=== PATIENT | male | born 1995 | race Caucasian/White ===

== ENCOUNTER 2017-02-21 19:58 | Emergency (ER) | payer OTHER ==
--- NOTE | ~2017-02-21 | CT2 ---
[facility] A Service of [facility] RADIOLOGY TEXT RESULTS PATIENT: TAWANA SAUL JR LOCATION: SED : 95 UNIT #: [id number] AGE: [address]: Mundo Kerns MD SEX: M ORDER DR: [id number] [address] [address] [id number] MR#: [id number] #: [id number] NAME: TAWANA SAUL JR : 1995 SEX: M STUDY DATE/TIME: 02/21/2017 22:03 UNIT: SED ROOM: STUDY DESCRIPTION: CT Abd and Pelv W Cont Attending Physician: Mundo Kerns M.D. Ordering Physician: Mundo Kerns M.D. Primary Care Physician: Primary Care Physician No MEDICAL IMAGING REPORT This report is preliminary unless electronic signature is present. EXAM CT abdomen and pelvis with contrast, 02/21/2017 INDICATION Mid abdomen pain, nausea and vomiting for a week with elevated white blood cell count. COMPARISON 08/07/2014 TECHNIQUE The patient was given 100 mL Isovue-370 and axial 5 mm images were obtained through the abdomen and pelvis. This CT exam was performed with one or more of the following radiation dose reduction techniques: automatic exposure control, adjustment of mA and/or kV according to patient size, and iterative reconstruction. FINDINGS The lung bases are clear. The gallbladder is surrounded by fluid and slightly contrasted and the wall is enhancing. No stones are visible. The liver, spleen, pancreas, adrenal glands and kidneys are normal. The aorta is normal in size and there is no adenopathy. The bowel appears normal. There is no evidence of appendicitis. I cannot clearly seen the appendix. There is a small amount of free fluid in the pelvis. The bladder and prostate gland are normal. The bones are unremarkable. IMPRESSION 1. The gallbladder is abnormal. The gallbladder is slightly contracted and the wall is enhancing but the wall is normal in thickness. The gallbladder is surrounded by fluid. There is also some free fluid in the pelvis. Clinical correlation with evidence of cholecystitis is [facility] A Service of [facility] RADIOLOGY TEXT RESULTS PATIENT: TAWANA SAUL JR LOCATION: SED : 95 UNIT #: [id number] AGE: [address]: Mundo Kerns MD SEX: M ORDER DR: recommended. 2. I cannot see the appendix but I do not see any evidence of appendicitis. Dictated by... Mc Hoang M.D. THIS IS AN ELECTRONICALLY VERIFIED REPORT cM Hoang M.D. at 02/22/2017 5:54 AM BRANDI/sameera TD: 02/22/2017 02:00 JOB #: [id number] MEDICAL IMAGING REPORT Page 1 of 1
[~2017-02-21 19:58] MED LIST: AMOXIL875 MG PO; DOXYCYCLINE150 MG PO; MOTRIN400 M1 PO; NO MEDICATIONS; PYRIDIUM100 MG PO; VOLTAREN75 MG PO
[2017-02-21 20:12] LABS: URINE SOURCE CLEAN CATCH
[2017-02-21 20:17] LABS: URINE APPEARANCE CLEAR; URINE BLOOD NEG (NEG); URINE COLOR DK YELLOW; URINE GLUCOSE NEG (NORM); URINE KETONE TRACE (NEG); URINE LEUKOCYTE ESTERASE NEG (NEG); URINE NITRATE NEG (NEG); URINE PH 5.5 (5-8); URINE PROTEIN 1+ (NEG); URINE SPECIFIC GRAVITY 1.025 (1.003-1.035)
[2017-02-21 20:18] LABS: URINE BILIRUBIN POS (NEG)
[2017-02-21 20:19] LABS: BASOPHIL# 0.2 X10e3 (0-0.3); BASOPHIL% 1.2 % (0-2.5); EOSINOPHIL# 0.3 X10e3 (0-0.7); HEMATOCRIT 45.1 % (38.0-50.0); HEMOGLOBIN 15.2 gm/dL (13.0-16.0); LYMPHOCYTE# 3.8 X10e3 (1.0-3.5); LYMPHOCYTE% 29.8 % (17.0-45.0); MEAN CELL VOLUME 90.9 FL (83-96); MEAN CORPUSCULAR HEMOGLOBIN 30.7 PG (28-34); MEAN CORPUSCULAR HGB CONC 33.7 g/dL (30-36); MEAN PLATELET VOLUME 8.2 FL (6.5-11.5); MICRO INDICATED? NO; MONOCYTE# 1.8 X10e3 (0-1.0); MONOCYTE% 13.6 % (3.0-12.0); NEUTROPHIL# 6.9 X10e3 (1.5-7.1); NEUTROPHIL% 53.4 % (40-75); PLATELET COUNT 213 X10e3 (140-420); RED BLOOD COUNT 4.97 X10e (3.90-5.60); RED CELL DISTRIBUTION WIDTH 14.8 % (11.0-15.5); WHITE BLOOD COUNT 12.9 X10e3 (4.0-10.5)
[2017-02-21 20:20] LABS: DIFF IND NO
[2017-02-21 20:27] LABS: AMPHETAMINE POS (NEG); BARBITURATES NEG (NEG); BENZODIAZEPINES POS (NEG); COCAINE NEG (NEG); MARIJUANA POS (NEG); OPIATES POS (NEG); TRICYCLIC ANTIDEPRESSANTS NEG (NEG); U METHADONE NEG (NEG)
[2017-02-21 20:35] LABS: ALBUMIN SERUM 3.5 g/dL (3.5-5.0); BILIRUBIN, DIRECT 3.3 mg/dL (0.0-0.2); BILIRUBIN,INDIRECT 1.6 mg/dL (0.0-0.9); BILIRUBIN,TOTAL 4.9 mg/dL (0.2-2.0); BUN/CREATININE RATIO 11.42; CALCIUM SERUM 8.7 mg/dL (8.4-10.2); CREATININE SERUM 0.7 mg/dL (0.6-1.4); POTASSIUM 3.6 mmol/L (3.5-5.1); PROTEIN TOTAL SERUM 6.9 g/dL (6.0-8.3)
[2017-02-21 21:15] LABS: INR 1.3; PROTHROMBIN TIME (PATIENT) 15.2 SECONDS (9.5-12.4)
[2017-02-22] MEDS ORDERED: NO MEDICATIONS (16:13)
[2017-07-28] MEDS ORDERED: OXYCONTIN PO (10:45)
[2017-07-28] MEDS ORDERED: NEURONTIN PO (10:46)
[2017-07-28] MEDS ORDERED: ROBAXIN PO (10:46)
[2017-07-28] MEDS ORDERED: VISTARIL50 MG PO (10:47)
[2017-07-28] MEDS ORDERED: REQUIP1 MG PO (10:47)
[2017-07-28] MEDS ORDERED: SEROQUEL100 MG PO (10:48)
[2017-07-28] MEDS ORDERED: DAPTOMYCIN500 MG IV (10:49)
[2017-07-28] MEDS ORDERED: TYL325 PO (10:51)
[2017-07-28] MEDS ORDERED: DAKIN'S MODIF1000 ML TOP (10:53)
== END 2017-02-21 22:36 | disposition left against medical advice (07) ==
LOC: SED 19:58
PROVIDERS: Emergency Medicine
DX: B17.9 Acute viral hepatitis, unspecified (principal); F19.10 Other psychoactive substance abuse, uncomplicated; F17.200 Nicotine dependence, unspecified, uncomplicated
CPT/HCPCS: 36415; 74177; 80048; 80076; 80307; 81003; 82150; 83690; 85025; 85610; 85730; 96361; 96365; 96374; 96375; 99284; G0480; J2405; Q9967

== ENCOUNTER 2017-02-22 13:07 | Inpatient (IN) | payer OTHER ==
--- NOTE | ~2017-02-22 | CO ---
Unit #: [id number] #: [id number] Patient: TAWANA SAUL JR [id number] [address] [place], [place] [address] [id number] I MR#: [id number] NAME: TAWANA SAUL JR ROOM: [facility] Age: 22 Sex: M Admission Date: 02/22/2017 : 1995 Attending Physician: Paul Melo M.D. Consultation Date: 02/23/2017 CONSULTATION REPORT REASON FOR CONSULTATION Acute hepatitis. HISTORY OF PRESENT ILLNESS Mr. Saul is a 22-year-old gentleman with a history of nausea, diffuse abdominal pain, and jaundice. This is his first episode that he has ever noted anything like this. His initial workup suggested possibility of cholecystitis, but further evaluation shows the entire thing to be acute hepatitis. There is also mention of the patient having hepatitis C in the past. He does use intravenous amphetamine and says he last used it about a month ago. PAST MEDICAL HISTORY Significant for hepatitis C. PAST SURGICAL HISTORY None. HOME MEDICATIONS None. ALLERGIES None. SOCIAL HISTORY He smokes a pack of cigarette daily. Does not drink, but does use intravenous drugs. FAMILY HISTORY None of colon, pancreatic cancer, or liver disease. REVIEW OF SYSTEMS Detailed review of organ systems does not reveal any recent weight loss. No history of fever, chills, or rigors. No history of headache, seizures, chest pain, or syncope. No history of cough, expectoration, or hemoptysis. No history of dysuria, hematuria, or pyuria. No history of focal seizures or extremity weakness. PHYSICAL EXAMINATION GENERAL: He appears alert and oriented, and does appear to have jaundice. VITAL SIGNS: Temperature is 98.2, pulse is 60 per minute and regular, respiratory rate is 20, blood pressure is 139/66. He weighs 143 pounds, which is close to his baseline weight. HEENT: He has no pallor, but does have obvious icterus. No Unit #: [id number] #: [id number] Patient: TAWANA SAUL JR lymphadenopathy or peripheral edema. CARDIOVASCULAR: Normal heart sounds. No murmurs on auscultation. LUNGS: Reveal normal breath sounds. Good air entry. ABDOMEN: Soft and nontender. Liver and spleen are not palpable. Bowel sounds normal. DIAGNOSTIC STUDIES LABORATORY RESULTS: Shows a leukocytosis with white count of 12,900, hemoglobin and hematocrit are normal. INR is 1.2. Serum chemistry shows a total bilirubin of 5.7 with a rising trend. Peak AST and ALT and alkaline phosphatase are 1693, 2800, as well as 183 respectively. Hepatitis serology is pending. CLINICAL IMPRESSION The patient most likely has either hepatitis B or hepatitis C as a result of intravenous drug use. A detailed discussion was held with the patient and explained that there is chances are that he will fully recover from the current episode, but will require follow up with [facility] as an outpatient. No specific intervention is indicated except for normal regular diet. Thank you for asking me to see this pleasant young man. I appreciate the consult. Dictated by... Sulma Loya/huber TD: 02/24/2017 23:19 JOB #: [id number] CONSULTATION REPORT Page 1 of 1 X David Gould MD X CONSULTATION REPORT
--- NOTE | ~2017-02-22 | US67 ---
[facility] A Service of [facility] RADIOLOGY TEXT RESULTS PATIENT: TAWANA SAUL JR LOCATION: [facility] 560-01 : 95 UNIT #: [id number] AGE: [address]: Paul Melo MD SEX: M ORDER DR: [id number] [facility] [address] [place], [place] [address] [id number] I MR#: [id number] #: [id number] NAME: TAWANA SAUL JR : 1995 SEX: M STUDY DATE/TIME: 02/22/2017 15:41 UNIT: CEDOF ROOM: 91957 STUDY DESCRIPTION: US Gallbladder Attending Physician: Ken Rowan M.D. Ordering Physician: Partha Almanza D.O. Primary Care Physician: No Primary Care Physician MEDICAL IMAGING REPORT This report is preliminary unless electronic signature is present EXAM Gallbladder ultrasound, 02/22/2017 HISTORY 22-year-old male; right upper quadrant abdominal pain and nausea for [address] abdomen and pelvis with contrast, 02/21/2017. FINDINGS The liver demonstrates normal echotexture without focal abnormality. Pancreatic tail is partially obscured by bowel gas, but the visualized pancreas appears unremarkable. The IVC demonstrates normal color flow. Common bile duct caliber is within normal limits, at 3 mm. No intrahepatic biliary ductal dilation is seen. The liver size is within normal limits measuring 16.6 cm in long axis. Right kidney measures 10.5 cm in length without focal cortical lesion, shadowing stone or hydronephrosis. Gallbladder is contracted. The gallbladder is abnormal. There is abnormal gallbladder wall thickening and gallbladder wall edema up to 11 mm. No definite cholelithiasis is seen. IMPRESSION 1. Abnormal diffuse gallbladder wall thickening and gallbladder wall edema, worrisome for acute or chronic cholecystitis. Correlate with clinical symptoms. 2. No evidence of cholelithiasis or abnormal biliary dilation. 3. Remainder of examination is unremarkable. [facility] A Service of [facility] RADIOLOGY TEXT RESULTS PATIENT: TAWANA SAUL JR LOCATION: [facility] 560-01 : 95 UNIT #: [id number] AGE: [address]: Paul Melo MD SEX: M ORDER DR: Dictated by... Marixa Burrell M.D. THIS IS AN ELECTRONICALLY VERIFIED REPORT Marixa Burrell M.D. at 02/23/2017 8:34 AM JOANNA/cristino TD: 02/22/2017 20:04 JOB #: [id number] MEDICAL IMAGING REPORT Page 1 of 1 COPY
--- NOTE | ~2017-02-22 | DS ---
Unit #: [id number] #: [id number] Patient: TAWANA SAUL JR [id number] [address] [place], [place] [address] [id number] I MR#: [id number] NAME: TAWANA SAUL JR ROOM: 560 Age: 22 Sex: M Admission Date: 02/22/2017 : 1995 Discharge Date: 02/25/2017 Attending Physician: Paul Melo M.D. Primary Care Physician: No Primary Care Physician DISCHARGE SUMMARY DIAGNOSIS ON ADMISSION Acute abdominal pain. DIAGNOSES ON DISCHARGE 1. Abdominal pain, improved, no evidence of acute cholecystitis. 2. Chronic hepatitis C. 3. Polysubstance abuse. CONSULTATIONS 1. Dr. David Gould in GI consultation. 2. Dr. Barrett and group in surgical consultation. DIAGNOSTIC STUDIES LABORATORY: The patient's creatinine is 0.7, sodium 135, potassium 4.4. AST 260, ALT 1064. INR is 1.2. WBC 9.1, hemoglobin 13.6, platelet count is 256,000. Patient's urine tox screen was positive for opiates, marijuana, amphetamines, and benzodiazepines. IMAGING: Patient had HIDA scan done which suggested significant metabolic abnormality within the liver. There was no compelling evidence of acute cholecystitis or cystic duct obstruction. Patient had a gallbladder ultrasound done which revealed abnormal diffuse gallbladder wall thickening and gallbladder wall edema. CT scan of abdomen and pelvis revealed that the gallbladder was slightly contracted but the wall thickness was normal. HOSPITAL COURSE A 22-year-old patient was admitted to [facility] with abdominal pain. Details are as per admission H and P. Patient was seen by GI in consultation and Dr. Barrett in surgical consultation. Workup was done and Dr. Barrett has recommended that patient does not have any evidence of acute cholecystitis. Acute hepatitis: Patient has history of chronic hepatitis C. Patient was seen by Dr. David Gould in consultation who has recommended to follow up with [facility]. Polysubstance abuse: Patient was advised to follow up with [facility]. Today patient is comfortable. Denies abdominal pain, is tolerating diet well, wants to go home. Unit #: [id number] #: [id number] Patient: TAWANA SAUL JR PHYSICAL EXAMINATION VITAL SIGNS: Reveal temperature of 98.6, pulse is 51 per minute, respiratory rate is 18 per minute, blood pressure is 121/78. HEENT: Revealed no conjunctival congestion. Sclerae is nonicteric. NECK: Supple. Trachea central. RESPIRATORY: Showed breath sounds equal bilaterally. No wheezes or crackles. HEART: Regular rate and rhythm. S1, S2. ABDOMEN: Soft, nontender. Bowel sounds are present in all four quadrants. NEUROLOGIC: The patient is alert to person, place, and time. Power is 5/5 bilaterally. Sensations are grossly intact. SKIN: Warm and dry. FOLLOWUP The patient is advised to follow up with primary care physician in one week and is advised to follow up with [facility]. Patient is also advised to follow up with [facility] (1) . Patient is advised to have a CBC and CMP done with primary care physician in one week. The patient is advised to call primary care physician or go to ER if his condition changes. Dictated by... Sulma Soria/josiah TD: 02/25/2017 11:47 JOB #: [id number] CC: David Gould M.D. DISCHARGE SUMMARY Page 1 of 1 X Paul Melo MD X DISCHARGE SUMMARY
--- NOTE | ~2017-02-22 | NM21 ---
[facility] A Service of [facility] RADIOLOGY TEXT RESULTS PATIENT: TAWANA SAUL JR LOCATION: [facility] 560-01 : 95 UNIT #: [id number] AGE: [address]: Paul Melo MD SEX: M ORDER DR: [id number] [facility] [address]. [place], [place] [address] [id number] I MR#: [id number] Acc #: [id number] NAME: TAWANA SAUL JR : 1995 SEX: M STUDY DATE/TIME: 02/23/2017 12:43 UNIT: C5B ROOM: [facility] STUDY DESCRIPTION: NM Hepatobiliary W GB Attending Physician: Paul Melo M.D. Ordering Physician: Mundo Marin M.D. Primary Care Physician: No Primary Care Physician MEDICAL IMAGING REPORT This report is preliminary unless electronic signature is present EXAM Radionuclide biliary scan. DATE OF EXAM 02/23/2017 HISTORY Sharp epigastric pain, some chest pain, nausea, bloating, constipation. Symptoms for over a week. No abdominal surgery. No history of cancer. TECHNIQUE Following intravenous administration of 5.36 mCi technetium 99m Choletec, static images of the abdomen were obtained at 15-minute intervals over 60 minutes. Delayed 90 and 120-minute images were also obtained. FINDINGS The study is abnormal. There is a subtle area of relative photopenia along the inferior margin of the liver on images to 60 minutes post tracer administration. On the 90 and 120-minute images, there is faint radiotracer seen within this area of relative photopenia. I favor that this is the gallbladder. Given tracer passage into the gallbladder, there is no evidence of cystic duct obstruction or acute cholecystitis. However, there is homogeneous virtually unaltered radiotracer distribution throughout the liver for the entire 120 minutes of the examination. Findings suggest a significant metabolic abnormality within the liver. Please correlate clinically. By the 120 minutes image, there is some very ill-defined and faint radiotracer superimposed over the abdomen which is favored to represent passage into the small bowel. IMPRESSION 1. Abnormal examination. Homogeneous, virtually unaltered distribution of radiotracer throughout the hepatic parenchyma during the entire examination, up to 120 minutes post-administration. This would STS. [facility] A Service of [facility] RADIOLOGY TEXT RESULTS PATIENT: TAWANA SAUL JR LOCATION: [facility] 560-01 : 95 UNIT #: [id number] AGE: [address]: Paul Melo MD SEX: M ORDER DR: suggest significant metabolic abnormality within the liver with significantly diminished radiotracer excretion. Correlate clinically and with laboratory data. 2. Faint visualization of the gallbladder at 90 and 120 minutes post radiotracer administration. See discussion above. Given the visualization of the gallbladder, there is no compelling evidence of acute cholecystitis or cystic duct obstruction. 3. Ill-defined radiotracer seen over the abdomen at 120 minutes post administration is favored to be within the small bowel and would imply patency of the common bile duct as well. Dictated by... Mundo Brown M.D. THIS IS AN ELECTRONICALLY VERIFIED REPORT Mundo Brown M.D. at 02/28/2017 6:37 PM Jose Alejandro TD: 02/23/2017 16:50 JOB #: [id number] MEDICAL IMAGING REPORT Page 1 of 1 COPY
--- NOTE | ~2017-02-22 | CO ---
Unit #: [id number] #: [id number] Patient: TAWANA SAUL JR [id number] [address] [address] [id number] I MR#: [id number] NAME: TAWANA SAUL ROOM: 560 Age: 22 Sex: M Admission Date: 02/22/2017 : 1995 Attending Physician: Paul Melo M.D. Primary Care Physician: Primary Care Physician No Consultation Date: 02/23/2017 CONSULTATION REPORT BRIEF HISTORY The patient is a 22-year-old gentleman, who presents with 1-week history of diffuse abdominal pain, some nausea. No vomiting. No diarrhea. No fevers or chills. No similar history of pain. No trauma. PAST MEDICAL HISTORY None. MEDICATIONS None. PAST SURGICAL HISTORY None. SOCIAL HISTORY Denies alcohol. FAMILY HISTORY Negative for GI malignancy. REVIEW OF SYSTEMS No cardiopulmonary complaints at this time. Else, 10 systems reviewed and negative. PHYSICAL EXAMINATION GENERAL: He is awake, alert, and appropriate, currently afebrile. HEENT: Unremarkable. NECK: Supple. No JVD. Trachea midline. LUNGS: Clear to auscultation. Bilateral breath sounds symmetric. CARDIOVASCULAR: Regular rate and rhythm. ABDOMEN: Soft. Diffusely tender. No rebound. No masses. No point tenderness. EXTREMITIES: No clubbing, cyanosis, or edema. DIAGNOSTIC STUDIES LABORATORY RESULTS: Show white count 11.9, hemoglobin 15. Bilirubin 5.7. AST 1700, ALT 2800. Amylase is normal. Alkaline phosphatase is 183. IMAGING STUDIES: Ultrasound shows thickened gallbladder. No stones. Normal ducts. ASSESSMENT AND PLAN Likely hepatitis. I never seen cholecystitis cause such elevation of LFTs. We will recommend HIDA scan. GI evaluation for possible endoscopic Unit #: [id number] #: [id number] Patient: TAWANA SAUL JR retrograde cholangiopancreatography. Dictated by... Sulma Cisse/huebr TD: 02/23/2017 06:50 JOB #: [id number] CONSULTATION REPORT Page 1 of 1 X Mundo Marin MD CONSULTATION REPORT
--- NOTE | ~2017-02-22 | HP ---
Unit #: [id number] #: [id number] Patient: TAWANA SAUL JR [id number] [address] [place], [place] [address] [id number] I MR#: [id number] NAME: TAWANA SAUL JR ROOM: 75261 Age: 22 Sex: M Admission Date: 02/22/2017 : 1995 Attending Physician: Ken Rowan M.D. Primary Care Physician: No Primary Care Physician HISTORY AND PHYSICAL CHIEF COMPLAINT Abdominal pain. HISTORY OF PRESENT ILLNESS The patient is a 22-year-old male with a history of IV drug abuse, presented to the emergency room complaining of the abdominal pain. The patient was last seen at the [facility] last night and presented complaining of the abdominal pain for the one week. The patient had the workup with the CT of the abdomen and pelvis that is concerning for cholecystitis with free fluid in the pelvis and the gallbladder is slightly contracted and the wall is enhancing but the wall is normal in thickness. The gallbladder is surrounded by fluid. There is also some free fluid in the pelvis. The patient also has elevated LFTs with the history of hepatitis C and the patient stated the patient last used the IV amphetamines a month ago. He denies any fevers or chills, complains of the nausea and vomiting. PAST MEDICAL HISTORY Positive for hepatitis C. PAST SURGICAL HISTORY None. HOME MEDICATIONS None. ALLERGIES No known drug allergies. SOCIAL HISTORY He smokes cigarettes, a pack per day and denies alcohol and uses the IV drug amphetamines. FAMILY HISTORY Reviewed and none. REVIEW OF SYMPTOMS Fourteen-point review of symptoms performed and only pertinent positive findings as described above, remaining are negative. PHYSICAL EXAMINATION GENERAL APPEARANCE: On examination the patient is lying on a bed not in acute distress. Unit #: [id number] #: [id number] Patient: TAWANA SAUL JR VITAL SIGNS: Temperature 97.7, pulse 73, respiratory rate 16, blood pressure 136/58, sating 100% at room air. HEENT: Head atraumatic, normocephalic. Pupils equal, round and reacting to light and accommodation. Extraocular movements are intact. NECK: Supple. No JVD. LUNGS: Clear to auscultation bilaterally. HEART: Regular rate and rhythm. ABDOMEN: Soft, positive bowel sounds. Tenderness in the epigastric region. EXTREMITIES: No cyanosis. No clubbing. NEUROLOGIC: Awake, alert and oriented. No gross focal deficit. DIAGNOSTIC STUDIES IMAGING: CT of the abdomen and pelvis shows the gallbladder is abnormal. The gallbladder is slightly contracted and the wall is enhancing but the wall is normal in thickness. The gallbladder is surrounded by fluid. There is also some free fluid in the pelvis. Clinical correlation with evidence of cholecystitis is recommended. I cannot see the appendix but I do not see any evidence of appendicitis. LABORATORY DATA: Glucose 104, BUN 8, creatinine 0.8, sodium 138, potassium 3.9, chloride 100, bicarb 31, calcium 8.8, albumin 3.1, total bilirubin 5.7, direct bilirubin 3.6, indirect bilirubin 2.1m AST 1693, ALT 2802, alkaline phosphatase 183, amylase 12, lipase 22, acetaminophen less than 10, alcohol less than 5, INR is 1.3, WBC 11.9, hemoglobin 15.2, hematocrit 46.9, platelets 250. Urine tox is positive for benzodiazepine, amphetamines, marijuana, opiates. UA is negative. ASSESSMENT 1. Cholecystitis. 2. Intravenous drug abuse. 3. Hepatitis, history of hepatitis C. PLAN 1. Plan is to admit the patient to the inpatient with the telemetry. 2. Continue with the IV fluids, IV antibiotic with Zosyn. 3. LSA has been consulted for laparoscopic cholecystectomy and recommended GI for ERCP/endoscopy. 4. Continue with the pain control. 5. Check the HIDA scan for the cholecystitis. 6. Repeat the labs again in the morning. Further recommendations will follow. Dictated by Sulma Motta TD: 02/22/2017 20:31 JOB #: [id number] Unit #: [id number] #: [id number] Patient: KGJAZMINE MAIERTITOMARINA Zhao JR HISTORY AND PHYSICAL Page 1 of 1 X X HISTORY AND PHYSICAL
[2017-02-22 13:35] LABS: URINE SOURCE CLEAN CATCH
[2017-02-22 13:40] LABS: INR 1.3; PARTIAL THROMBOPLASTIN TIME 30.1 SECONDS (23.5-31.3)
[2017-02-22 13:41] LABS: URINE APPEARANCE CLEAR; URINE BLOOD NEG (NEG); URINE COLOR DK YELLOW; URINE GLUCOSE NEG (NEG); URINE KETONE NEG (NEG); URINE LEUKOCYTE ESTERASE NEG (NEG); URINE NITRATE NEG (NEG); URINE PH 6.5 (5-8); URINE PROTEIN NEG (NEG); URINE SPECIFIC GRAVITY 1.021 (1.003-1.035); URINE UROBILINOGEN 0.2 MG/DL (NEG)
[2017-02-22 13:47] LABS: BASOPHIL# 0.1 X10e3 (0-0.3); BASOPHIL% 1.1 % (0-2.5); EOSINOPHIL# 0.2 X10e3 (0-0.7); EOSINOPHIL% 1.9 % (0.0-7.0); HEMATOCRIT 46.9 % (38.0-50.0); HEMOGLOBIN 15.2 gm/dL (13.0-16.0); LYMPHOCYTE# 3.2 X10e3 (1.0-3.5); LYMPHOCYTE% 27.1 % (17.0-45.0); MEAN CORPUSCULAR HEMOGLOBIN 29.8 PG (28-34); MEAN CORPUSCULAR HGB CONC 32.4 g/dL (30-36); MEAN PLATELET VOLUME 8.6 FL (6.5-11.5); MONOCYTE# 1.5 X10e3 (0-1.0); MONOCYTE% 12.5 % (3.0-12.0); NEUTROPHIL# 6.8 X10e3 (1.5-7.1); NEUTROPHIL% 57.4 % (40-75); PLATELET COUNT 250 X10e3 (140-420); WHITE BLOOD COUNT 11.9 X10e3 (4.0-10.5)
[2017-02-22 13:53] LABS: URINE BILIRUBIN POS (NEG)
[2017-02-22 13:54] LABS: CULTURE INDICATED? NO; URINE ICTOTEST POS (NEG)
[2017-02-22 14:03] LABS: ALBUMIN SERUM 3.1 g/dL (3.5-5.0); BILIRUBIN, DIRECT 3.6 mg/dL (0.0-0.2); BILIRUBIN,INDIRECT 2.1 mg/dL (0.0-0.9); BILIRUBIN,TOTAL 5.7 mg/dL (0.2-2.0); CALCIUM SERUM 8.8 mg/dL (8.4-10.2); CREATININE SERUM 0.8 mg/dL (0.6-1.4); GLOM FILT RATE Estimated 126.9 mL/min (>60); POTASSIUM 3.9 mmol/L (3.5-5.1); PROTEIN TOTAL SERUM 6.5 g/dL (6.0-8.3)
[2017-02-22 14:11] LABS: DIFF IND NO
[2017-02-22] MEDS ORDERED: NO MEDICATIONS (16:13)
[2017-02-23 07:25] LABS: BASOPHIL# 0.1 X10e3 (0-0.3); BASOPHIL% 1.1 % (0-2.5); EOSINOPHIL# 0.3 X10e3 (0-0.7); EOSINOPHIL% 2.2 % (0.0-7.0); HEMATOCRIT 43.2 % (38.0-50.0); HEMOGLOBIN 13.8 gm/dL (13.0-16.0); LYMPHOCYTE# 3.8 X10e3 (1.0-3.5); LYMPHOCYTE% 29.5 % (17.0-45.0); MEAN CELL VOLUME 92.1 FL (83-96); MEAN CORPUSCULAR HEMOGLOBIN 29.5 PG (28-34); MEAN PLATELET VOLUME 8.9 FL (6.5-11.5); MONOCYTE# 1.4 X10e3 (0-1.0); NEUTROPHIL# 7.2 X10e3 (1.5-7.1); NEUTROPHIL% 56.2 % (40-75); PLATELET COUNT 215 X10e3 (140-420); RED BLOOD COUNT 4.68 X10e (3.90-5.60); RED CELL DISTRIBUTION WIDTH 15.3 % (11.0-15.5); WHITE BLOOD COUNT 12.9 X10e3 (4.0-10.5)
[2017-02-23 07:36] LABS: DIFF IND NO
[2017-02-23 07:43] LABS: BUN/CREATININE RATIO 11.66; CALCIUM SERUM 8.1 mg/dL (8.4-10.2); CREATININE SERUM 0.6 mg/dL (0.6-1.4); GLOM FILT RATE Estimated 142.8 mL/min (>60); POTASSIUM 4.1 mmol/L (3.5-5.1)
[2017-02-24 06:23] LABS: HEMATOCRIT 42.5 % (38.0-50.0); HEMOGLOBIN 13.8 gm/dL (13.0-16.0); MEAN CORPUSCULAR HEMOGLOBIN 29.9 PG (28-34); MEAN CORPUSCULAR HGB CONC 32.6 g/dL (30-36); MEAN PLATELET VOLUME 8.4 FL (6.5-11.5); RED BLOOD COUNT 4.62 X10e (3.90-5.60); RED CELL DISTRIBUTION WIDTH 15.3 % (11.0-15.5); WHITE BLOOD COUNT 11.3 X10e3 (4.0-10.5)
[2017-02-24 06:37] LABS: INR 1.2; PROTHROMBIN TIME (PATIENT) 12.6 SECONDS (9.6-11.5)
[2017-02-24 07:36] LABS: ALBUMIN SERUM 2.4 g/dL (3.5-5.0); CALCIUM SERUM 8.2 mg/dL (8.4-10.2); CREATININE SERUM 0.5 mg/dL (0.6-1.4); GLOM FILT RATE Estimated 153.9 mL/min (>60); POTASSIUM 4.2 mmol/L (3.5-5.1); PROTEIN TOTAL SERUM 5.1 g/dL (6.0-8.3)
[2017-02-25 08:18] LABS: HEMATOCRIT 41.7 % (38.0-50.0); HEMOGLOBIN 13.6 gm/dL (13.0-16.0); MEAN CELL VOLUME 92.2 FL (83-96); MEAN CORPUSCULAR HGB CONC 32.5 g/dL (30-36); MEAN PLATELET VOLUME 8.2 FL (6.5-11.5); RED BLOOD COUNT 4.52 X10e (3.90-5.60); RED CELL DISTRIBUTION WIDTH 15.7 % (11.0-15.5); WHITE BLOOD COUNT 9.1 X10e3 (4.0-10.5)
[2017-02-25 09:49] LABS: ALBUMIN SERUM 2.6 g/dL (3.5-5.0); BILIRUBIN,TOTAL 2.5 mg/dL (0.2-2.0); BUN/CREATININE RATIO 7.14; CALCIUM SERUM 8.5 mg/dL (8.4-10.2); CREATININE SERUM 0.7 mg/dL (0.6-1.4); POTASSIUM 4.4 mmol/L (3.5-5.1); PROTEIN TOTAL SERUM 5.5 g/dL (6.0-8.3)
[2017-02-26 14:10] LABS: HA AB IGM (HEPPAN) Nonreactive (()); HB CORE AB IGM (HEPPAN) Nonreactive (Nonreactive); HB S AG (HEPPAN) Nonreactive (Nonreactive); HEP C AB (HEPPAN) Reactive (Nonreactive)
[2017-07-28] MEDS ORDERED: OXYCONTIN PO (10:45)
[2017-07-28] MEDS ORDERED: ROBAXIN PO (10:46)
[2017-07-28] MEDS ORDERED: NEURONTIN PO (10:46)
[2017-07-28] MEDS ORDERED: REQUIP1 MG PO (10:47)
[2017-07-28] MEDS ORDERED: VISTARIL50 MG PO (10:47)
[2017-07-28] MEDS ORDERED: SEROQUEL100 MG PO (10:48)
[2017-07-28] MEDS ORDERED: DAPTOMYCIN500 MG IV (10:49)
[2017-07-28] MEDS ORDERED: TYL325 PO (10:51)
[2017-07-28] MEDS ORDERED: DAKIN'S MODIF1000 ML TOP (10:53)
== END 2017-02-25 14:45 | disposition left against medical advice (07) | DRG 443 ==
LOC: CED 13:07 → CEDOF 19:54 → C5B 21:21
PROVIDERS: Emergency Medicine; Internal Medicine; Internal Medicine Gastroenterology; Surgery
DX: B17.9 Acute viral hepatitis, unspecified (principal); F15.10 Other stimulant abuse, uncomplicated; B18.2 Chronic viral hepatitis C; F17.210 Nicotine dependence, cigarettes, uncomplicated
CPT/HCPCS: 36415; 76705; 78226; 80048; 80053; 80074; 80076; 81003; 82150; 83690; 85025; 85027; 85610; 85730; 87522; 94760; 96361; 96365; 96368; 96375; 99285; A9537; J1650; J2270; J2405; J2543

== ENCOUNTER 2017-03-30 00:50 | Emergency (ER) | payer OTHER ==
[2017-07-28] MEDS ORDERED: OXYCONTIN PO (10:45)
[2017-07-28] MEDS ORDERED: ROBAXIN PO (10:46)
[2017-07-28] MEDS ORDERED: NEURONTIN PO (10:46)
[2017-07-28] MEDS ORDERED: VISTARIL50 MG PO (10:47)
[2017-07-28] MEDS ORDERED: REQUIP1 MG PO (10:47)
[2017-07-28] MEDS ORDERED: SEROQUEL100 MG PO (10:48)
[2017-07-28] MEDS ORDERED: DAPTOMYCIN500 MG IV (10:49)
[2017-07-28] MEDS ORDERED: TYL325 PO (10:51)
[2017-07-28] MEDS ORDERED: DAKIN'S MODIF1000 ML TOP (10:53)
== END 2017-03-30 01:33 | disposition home or self-care (01) ==
LOC: SED 00:50
DX: L03.114 Cellulitis of left upper limb (principal); B19.20 Unspecified viral hepatitis C without hepatic coma
CPT/HCPCS: 87070; 87077; 87186; 87205; 99283

== ENCOUNTER 2017-05-22 16:12 | Emergency (ER) | payer OTHER ==
[2017-07-28] MEDS ORDERED: OXYCONTIN PO (10:45)
[2017-07-28] MEDS ORDERED: NEURONTIN PO (10:46)
[2017-07-28] MEDS ORDERED: ROBAXIN PO (10:46)
[2017-07-28] MEDS ORDERED: REQUIP1 MG PO (10:47)
[2017-07-28] MEDS ORDERED: VISTARIL50 MG PO (10:47)
[2017-07-28] MEDS ORDERED: SEROQUEL100 MG PO (10:48)
[2017-07-28] MEDS ORDERED: DAPTOMYCIN500 MG IV (10:49)
[2017-07-28] MEDS ORDERED: TYL325 PO (10:51)
[2017-07-28] MEDS ORDERED: DAKIN'S MODIF1000 ML TOP (10:53)
== END 2017-05-22 19:05 | disposition home or self-care (01) ==
LOC: SED 16:12
DX: L02.411 Cutaneous abscess of right axilla (principal); B19.20 Unspecified viral hepatitis C without hepatic coma; F17.210 Nicotine dependence, cigarettes, uncomplicated; Z86.14 Personal history of Methicillin resistant Staphylococcus aureus infection
CPT/HCPCS: 10060; 99283

== ENCOUNTER 2017-06-10 16:06 | Emergency (ER) | payer OTHER ==
[~2017-06-10] VITALS: Ht 180.3 cm; Wt 67.6 kg
[2017-07-28] MEDS ORDERED: OXYCONTIN PO (10:45)
[2017-07-28] MEDS ORDERED: NEURONTIN PO (10:46)
[2017-07-28] MEDS ORDERED: ROBAXIN PO (10:46)
[2017-07-28] MEDS ORDERED: VISTARIL50 MG PO (10:47)
[2017-07-28] MEDS ORDERED: REQUIP1 MG PO (10:47)
[2017-07-28] MEDS ORDERED: SEROQUEL100 MG PO (10:48)
[2017-07-28] MEDS ORDERED: DAPTOMYCIN500 MG IV (10:49)
[2017-07-28] MEDS ORDERED: TYL325 PO (10:51)
[2017-07-28] MEDS ORDERED: DAKIN'S MODIF1000 ML TOP (10:53)
== END 2017-06-10 19:54 | disposition left against medical advice (07) ==
LOC: CED 16:06
DX: Z53.21 Procedure and treatment not carried out due to patient leaving prior to being seen by health care provider (principal)

== ENCOUNTER 2017-06-13 15:03 | Emergency (ER) | payer OTHER ==
[2017-06-13] MEDS ORDERED: NO MEDICATIONS (15:05)
[2017-07-28] MEDS ORDERED: OXYCONTIN PO (10:45)
[2017-07-28] MEDS ORDERED: ROBAXIN PO (10:46)
[2017-07-28] MEDS ORDERED: NEURONTIN PO (10:46)
[2017-07-28] MEDS ORDERED: VISTARIL50 MG PO (10:47)
[2017-07-28] MEDS ORDERED: REQUIP1 MG PO (10:47)
[2017-07-28] MEDS ORDERED: SEROQUEL100 MG PO (10:48)
[2017-07-28] MEDS ORDERED: DAPTOMYCIN500 MG IV (10:49)
[2017-07-28] MEDS ORDERED: TYL325 PO (10:51)
[2017-07-28] MEDS ORDERED: DAKIN'S MODIF1000 ML TOP (10:53)
== END 2017-06-13 16:01 | disposition home or self-care (01) ==
LOC: SED 15:03
DX: L02.414 Cutaneous abscess of left upper limb (principal); F17.200 Nicotine dependence, unspecified, uncomplicated; Z86.19 Personal history of other infectious and parasitic diseases
CPT/HCPCS: 96372; 96374; 99283